=== PATIENT | male | born 1940 | race Caucasian/White ===

== ENCOUNTER 2025-01-13 13:05 | Outpatient (AMB) | payer MEDICARE, MEDICAID, SELFPAY ==
--- NOTE | 2025-01-13 13:07 | A.OFFPC_ITS ---
Vital Signs 3 01/13/25 13:25 Height 5 ft 4.96 in Weight 199 lb BMI 33.2 BP 134/76 Blood Pressure Location Rt brachial Position Sitting Respiration 12 Pulse 88 Pulse Source Pulse Oximeter Temp 99.1 F Temp Source Oral Pulse Oximetry (%) 99 Oxygen Delivery Method Room Air Intake Visit Reasons: Chronic Conditions Intake Note: New patient to establish care and [facility] 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 Patient also needs medical supply. Patient is requesting a chair for shower, diapers, gloves and a portable toilet. Armhole Sewer Required: No Allergies No Known Allergies Allergy (Verified 01/13/25 13:50) Medication List - Last Reviewed 01/13/25 by José Gonzales MA apixaban (Eliquis) 2.5 mg PO BID bumetanide 2 mg PO DAILY metoprolol tartrate 25 mg PO BID sacubitril-valsartan 24-26 mg (Entresto) 1 tab PO BID triamcinolone acetonide 0.1% appl topical BID Tobacco use date assessed: 01/13/25 Fall risk assessment: No Falls in past year Last assessed Fall Risk: 01/13/25 Dental Screening Dental Screen Date: 01/13/25 Did you have a dental visit in the last 12 months?: Yes Did you have a dental problem in the last 6 months where you did not have access to dental care?: No Was dental information given to patient?: Patient has dentist HPI HPI Comments 2 History of Present Illness0 Details 84 y/o M with CHF with seconday hyperald osteronism, Afib with secondary hypercoaguable state, hypothyroid, PVD, HTN, CKD, Anemia, chronic R pleural effusion w/ pleurx cath Specialists: DERM appt tomorrow in [place] CARDS RENAL New patient here to [facility] care w/ his dtr who helps w/ regan barrier. Armhole Sewer offered and declined. Here today for a Transitional Care Management Visit, Discharge summary reviewed. 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 I do not have these records. Medications reconciled & updated. During todays TCM visit, the d/c summary was reviewed, along with the need for or follow-up on pending diagnostic tests and treatments, as necessary interaction with other health floor care technician who will assume or reassume care of the beneficiary?s system-specific problems was done or is being worked on, education was provided to the beneficiary, family, guardian, and/or caregiver, referrals to establish or re-establish and arrange needed community resources we completed, assistance in scheduling required follow-up with community providers and services & finally updated medication list given to patient/caregiver Exam: Awake alert NAD accompanied by dtr Scleras clear bilat Afib LS dim RLL otherwise clear, pleurx cath RLL Lipoma L lower leg Lipoma Scalp Skin lesion R restorationism Right leg bandaged, not removed for visit; + edema BLE Amb walker [facility] Care Access Director E Learning - History of Atrial Fibrillation, Heart Failure, Mitral Regurgitation, and Chronic Right-Sided Pleural Effusion. - Recent admission for heart failure and acute kidney injury. - PleuRx catheter in place for pleural e ffusion, drains fluid every three weeks. - Experiences bilateral leg swelling, no open wounds. - Lives with daughter after care home stay. - Reports discomfort with multiple speci alist visits, prefers minimal intervention. - He keeps saying Im fine and dtr want s some intervention. - tried to review goals of care but neit her were willing to review. - Derm fu tomorrow for suspected cancer skin lesion R restorationism Review of Systems - Cardiovascular: Reports heart failure, mitral regurgitation; denies chest pain. - Respiratory: Reports chronic right-geronimo ed pleural effusion. - Gastrointestinal: Denies current heart burn. - Musculoskeletal: Reports bilateral leg swelling. - Dermatological: Reports redness in low er extremities; denies open wounds. - Urinary: Following acute kidney injury . - General: Denies recent infections. Physical Exam Awake alert NAD accompanied by dtr Scleras clear bilat Afib LS dim RLL otherwise clear, pleurx cath RLL Lipoma L anterior lower leg, proximal to knee Lipoma Scalp right posterior Skin lesion R restorationism covered by bandaid, not removed for visit today Right leg bandaged, not removed for visit; + edema BLE Amb walker Discussion Notes I discussed with the patient the management of his current health issues, including the role of the PleuRx catheter in managing chronic pleural effusion due to heart failure. I explained that periodic drainage helps prevent complications such as increased respiratory distress. We talked about the importance of seeing a overhead irrigator for ongoing heart failure management, despite his hesitance to visit multiple doctors, emphasizing that managing the PleuRx catheter and heart conditions is vital. I mentioned that the catheter should stay in place due to fluid buildup, to which the patient agreed. We discussed the need for updated blood work for medication adjustments. Follow-up with the heart and kidney specialists, and consideration for a vascular consultation for leg evaluation, were proposed, with priority given to cardiac issues. He states he does not want any doctors other than PCP and Renal. He wants to go to the hospital w/ any changes in his health, not willing to contact outpatient care providers, despite education. For this, i will enroll NN for dz education and risk reduction. He may be a candidate for palliative care but i could not get this info toda, despite trying. Assessment and Plan 1. Atrial Fibrillation - Continue Eliquis 2.5 mg BID. - Cont metoprolol 25mg BID - Refer to Cards 2. Heart Failure and Pleural Effusion - Maintain Bumetanide, Metoprolol, Entre sto; Refer to cardiology. - PleuRx catheter RLL, drainage every 3 weeks. Further mgmt as per Cards - I have scanned in the info about this pleurx to the chart -- this is actually a [employer] cath and not a Pleurx or at least it was; dtr states it was changed during [facility], for which i do not have the records 3. Moderate Mitral Regurgitation - Monitor with heart failure management. 4. Acute Kidney Injury/CKD - Nephrology referral; monitor renal fun ction. 5. Bilateral Leg Swelling - Consider vascular consult; monitor caprice ous signs. 6. Hypothyroid was taking levothroxine in the past but not currently, will check TSH Will send refill on all meds once labs are back. Recommed fu in 3 months for SAWV , sooner as needed. Patient Instructions - Continue all prescribed medications as directed. - Drain pleural catheter as needed, appr oximately every three weeks. - Follow up with overhead irrigator and nephro logist for ongoing management. - Undergo blood work to update kidney an d heart evaluations. - Report increased leg swelling or new s ymptoms promptly. - Maintain regular follow-up appointment s with healthcare providers. Consent Patient was informed and verbally consented to the use of an ambient scribe for clinic note documentation during this visit. Total time spent caring for the patient today was 70 minutes. This includes time spent before the visit reviewing the chart, time spent during the visit, and time spent after the visit on documentation, reviewing laboratory results, diagnostic imaging, medications, performing a medically necessary evaluation, counseling on diagnoses, care coordination, ordering appropriate tests, ordering appropriate medications, review of tests performed by other providers, reporting test results with the patient, communication with other healthcare providers. [facility] Medical History (Updated 01/13/25 @ 15:29 by Lori Hill [facility]) Back pain Kidney disease No pertinent family history Spine disorder Surgical History (Updated 01/13/25 @ 13:37 by José Gonzales MA) History of thoracic surgery Social History (Updated 01/13/25 @ 13:34 by José Gonzales MA) Household Members: Family Both parents involved: No Caregiver staying overnight: No Housing: House Are you a primary health care facility administrator to a significant other at home: No Do you presently have visiting nurse or other home services: No 75 years or older and lives alone: No Alcohol intake: never Patient Tobacco Use Status: Never used Tobacco e-Cigarette/Vaping Use: Never Used Second Hand Smoke Exposure: No service: No Current occupational status: retired Cognitive needs: No Hearing needs: No Vision needs: No Questionnaire PHQ-9 Over the last 2 weeks, how often have you been bothered by any of the following problems? 1. Little interest or pleasure in doing things: not at all 2. Feeling down, depressed, or hopeless: not at all 3. Trouble falling or staying asleep, or sleeping too much: not at all 4. Feeling tired or having little energy: nearly every day 5. Poor appetite or overeating: not at all 6. Feeling bad about yourself - or that you are a failure or have let yourself or your family down: not at all 7. Trouble concentrating on things, such as reading the newspaper or watching television: not at all 8. Moving or speaking so slowly that other people could have noticed. Or the opposite - being so fidgety or restless that you have been moving around a lot more than usual: not at all 9. Thoughts that you would be better off or of hurting yourself in some way: not at all Total score: 3 Depression Screening Interpretation: Negative Depression Screening Done: Yes 63678 - PHQ-9 Billing: Yes Source: Developed by Drs. Armani Romero, Margaret Harper, Abiel Goldman and colleagues, with an educational jane from [employer]. Thrive Questionnaire Date Thrive assessed: 01/13/25 I am a: Patient What is your living situation today?: I have a steady place to live Within the past 12 months, did the food you bought not last and you didn't have the money to get more?: Never true Within the past 12 months, did you worry whether your food would run out before you got money to buy more?: Never true Do you have trouble paying for medicines?: No Do you have trouble getting transportation to medical appointments?: No Do you have trouble paying your heating and electricity bill?: No Do you have trouble taking care of your child, family member or friend?: I choose not to answer this question Do you have trouble with day-to-day activities such as bathing, preparing meals, shopping, managing finances, etc.?: Yes Are you currently unemployed and looking for a job?: No Are you interested in more education?: I choose not to answer this question Please select the resources that you would like help with: None Currently or been in a relationship where the following occur: I choose not to answer THRIVE Score: 0 AUDIT C Alcohol Use Questionnaire (AUDIT-C) 1. How often do you have a drink containing alcohol?: Never 3. How often do you have six or more drinks on one occasion?: Never Total Score: 0 SANDI-7 AMB Questionnaire SANDI-7 Date SANDI - 7 assessed: 01/13/25 Feeling nervous, anxious, or on edge: 0 = Not at all Not being able to stop or control worryin = Not at all Worrying too much about different things: 0 = Not at all Trouble relaxin = Not at all Being so restless that it is hard to sit still: 0 = Not at all Becoming easily annoyed or irritable: 0 = Not at all Feeling afraid as if something awful might happen: 0 = Not at all Total SANDI-7 score (0-4 normal; 5-9 mild; 10-14 moderate; 15-21 severe): 0 Source: Developed by Drs. Armani Romero, Margaret Harper, Abiel Goldman and colleagues, with an educational jane from [employer]. SANDI-7 Assessment Billing SANDI-7 Assessment Tool: SANDI-7 Assessment 67718 Physical exam (Primary Care) Vital Signs: Last Vital Signs Temp 99.1 F 01/13/25 13:25 Pulse 88 01/13/25 13:25 Resp 12 01/13/25 13:25 BP 134/76 01/13/25 13:25 Pulse Ox 99 01/13/25 13:25 Oxygen Delivery Method Room Air 01/13/25 13:25 BMI result Body Mass Index 33.2 Tobacco/Smoking Status: Tobacco use Status Tobacco use date assessed 01/13/25 01/13/25 13:12 Patient Tobacco Use Status Never used Tobacco 01/13/25 13:34 e-Cigarette/Vaping Use Never Used 01/13/25 13:34 PHQ-9: PHQ-9 Score PHQ-9: Total score 3 01/13/25 13:29 Depression Screening Interpretation: Negative Thrive Assessment: Date of Thrive Assessment Date Thrive assessed 01/13/25 01/13/25 13:12 Currently or been in a relationship where the following occur: I choose not to answer Results Reviewed Results Reviewed: Coding Level of Care Code New Pt Level 5 (46973) Complex EM visit Add On G2211 Diagnoses Hospital discharge follow-up Z09 Chronic diastolic congestive heart failure I50.32 Heart failure type: diastolic Heart failure chronicity: chronic Encounter to establish care Z76.89 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 Permanent atrial fibrillation I48.21 Atrial fibrillation type: permanent Secondary hypercoagulable state D68.69 Acquired hypothyroidism E03.9 Hypothyroidism type: acquired PVD (peripheral vascular disease) I73.9 Primary hypertension I10 Hypertension type: primary hypertension Stage 3b chronic kidney disease N18.32 Chronic kidney disease stage 3 subtype: stage 3b (GFR 30-44) Chronic pleural effusion J90 Indwelling pleural catheter present Z96.89 Frailty syndrome in geriatric patient R54 Goals of care, counseling/discussion Z71.89 Additional Codes SANDI-7 Assessment Billing - SANDI-7 Assessment Tool: SANDI-7 Assessment 14241 ([id number]) PHQ-9 - 65392 - PHQ-9 Billing: Yes ([id number]) Assessment & Plan Assessment & Plan (1) Hospital discharge follow-up: Code(s): Z09 - Encounter for follow-up examination after completed treatment for conditions other than malignant neoplasm (2) CHF (congestive heart failure): Comment: with Secondary hyperaldosteronism that activates the zqmii-fmfwdwspohh-zznvgmdtdnh system (RAAS), due to Heart failure on entresto Code(s): I50.9 - Heart failure, unspecified Category: Medical Qualifiers: Heart failure type: diastolic Heart failure chronicity: chronic Q ualified Code(s): I50.32 - Chronic diastolic (congestive) heart failure (3) Encounter to establish care: Code(s): Z76.89 - Persons encountering health services in other specified circumstances (4) Secondary hyperaldosteronism: Comment: Secondary hyperaldosteronism that activates the ijxrd-burledcagha-ewrmhzvbxfl system (RAAS), due to Heart failure on entresto Code(s): E26.1 - Secondary hyperaldosteronism Category: Medical (5) Afib: Comment: w/ secondary hypercoagulable state, on eliquis Code(s): I48.91 - Unspecified atrial fibrillation Category: Medical Qualifiers: Atrial fibrillation type: permanent Qualified Code(s): I48.21 - Permanent atrial fibrillation (6) Secondary hypercoagulable state: Comment: d/t afib, on eliquis Code(s): D68.69 - Other thrombophilia Category: Medical (7) Hypothyroid: Code(s): E03.9 - Hypothyroidism, unspecified Category: Medical Qualifiers: Hypothyroidism type: acquired Qualified Code(s): E03.9 - Hypothyroidism, unspecified (8) PVD (peripheral vascular disease): Comment: BLE There is some type of area on R lateral lower leg that i did not see today Declined vascular referral at this time wants to use some amazon otc cream and self treat Code(s): I73.9 - Peripheral vascular disease, unspecified Category: Medical (9) HTN (hypertension): Code(s): I10 - Essential (primary) hypertension Category: Medical Qualifiers: Hypertension type: primary hypertension Qualified Code(s): I10 - Essential (primary) hypertension (10) CKD (chronic kidney disease) stage 3, GFR 30-59 ml/min: Comment: refer to renal Code(s): N18.30 - Chronic kidney disease, stage 3 unspecified Category: Medical Qualifiers: Chronic kidney disease stage 3 subtype: stage 3b (GFR 30-44) Qualified Code(s): N18.32 - Chronic kidney disease, stage 3b (11) Chronic pleural effusion: Comment: RLL pleurx cath in place Code(s): J90 - Pleural effusion, not elsewhere classified Category: Medical (12) Indwelling pleural catheter present: Comment: RLL Code(s): Z96.89 - Presence of other specified functional implants Category: Medical (13) Frailty syndrome in geriatric patient: Code(s): R54 - Age-related physical debility Category: Medical (14) Goals of care, counseling/discussion: Code(s): Z71.89 - Other specified counseling Category: Medical Plan . Orders: Orders 2 Comprehensive Met. Panel Today E03.9 - Hypothyroidism, unspecified, E26.1 - Secondary hyperaldosteronism, I10 - Essential (primary) hypertension, I50.9 - Heart failure, unspecified, N18.30 - Chronic kidney disease, stage 3 unspecified Prostate Specific Antigen Scr Today E03.9 - Hypothyroidism, unspecified, E26.1 - Secondary hyperaldosteronism, I10 - Essential (primary) hypertension, I50.9 - Heart failure, unspecified, N18.30 - Chronic kidney disease, stage 3 unspecified TSH reflex Free T4 Today E03.9 - Hypothyroidism, unspecified, E26.1 - Secondary hyperaldosteronism, I10 - Essential (primary) hypertension, I50.9 - Heart failure, unspecified, N18.30 - Chronic kidney disease, stage 3 unspecified Vitamin B12 and Folate Today E03.9 - Hypothyroidism, unspecified, E26.1 - Secondary hyperaldosteronism, I10 - Essential (primary) hypertension, I50.9 - Heart failure, unspecified, N18.30 - Chronic kidney disease, stage 3 unspecified Vitamin D 25-OH Total Today E03.9 - Hypothyroidism, unspecified, E26.1 - Secondary hyperaldosteronism, I10 - Essential (primary) hypertension, I50.9 - Heart failure, unspecified, N18.30 - Chronic kidney disease, stage 3 unspecified Complete Blood Count no Diff Today E03.9 - Hypothyroidism, unspecified, E26.1 - Secondary hyperaldosteronism, I10 - Essential (primary) hypertension, I50.9 - Heart failure, unspecified, N18.30 - Chronic kidney disease, stage 3 unspecified Lipid Panel Today E03.9 - Hypothyroidism, unspecified, E26.1 - Secondary hyperaldosteronism, I10 - Essential (primary) hypertension, I50.9 - Heart failure, unspecified, N18.30 - Chronic kidney disease, stage 3 unspecified Referrals 2 Cardiology Referral D68.69 - Other thrombophilia, E26.1 - Secondary hyperaldosteronism, I48.91 - Unspecified atrial fibrillation, I50.9 - Heart failure, unspecified, J90 - Pleural effusion, not elsewhere classified, Z96.89 - Presence of other specified functional implants Nurse Navigator Referral I50.9 - Heart failure, unspecified, R54 - Age-related physical debility Nurse Navigator Referral Z71.89 - Other specified counseling Nephrology Referral N18.30 - Chronic kidney disease, stage 3 unspecified
[2025-01-13 13:25] VITALS: BP 134/76; PULSE 88; RESP 12; TEMP 37.3; O2SAT 99; BMI 33.2
--- OUTSIDE RECORDS SUMMARY | 2025-01-13 13:52 | XMS_ITS | Clinical Summary ---
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 Supervisor Name Role Phone UknaunSribuAdeeljosep, Loree Primary Care Provider [phone] Encounters Date Type Department Care Team Description 12/22/2024 Telephone [place] [address] [place] [id number] Loree Tong from Last 3 Months Social History Tobacco Use Types Packs/Day Years Used Date Smoking Tobacco: Never Assessed Sex and Gender Information Value Date Recorded Sex Assigned at Not on file Legal Sex Male 9:34 AM EDT Gender Identity Not on file Sexual Orientation Not on file Plan of Treatment Health Maintenance Due Date Last Done Comments DTaP,Tdap,and Td Vaccines (1 - Tdap) 1959 Pneumococcal Vaccine: 50+ Ye ars (1 of 1 - PCV) 1989 Zoster Vaccines (1 of 2) 1989 RSV Immunization Adult Patie nts (1 - 1-dose 75+ series) 2014 COVID-19 Vaccine ( - 2023-2 5 season) 2024 Depression Screening 2024 Cholesterol Screening (Lipid Panel) 12/22/2024 Falls Risk Assessment 12/22/2024 Hypertension/CHF/CAD Annual BMP Blood Test 12/22/2024 Medicare Annual Wellness Visit 12/22/2024 Social Influencers of Health Screening 12/22/2024 Influenza Vaccine (#1) 2025 HIB Vaccines Aged Out No longer eligi ble based on patient's age to complete this topic HPV Vaccines Aged Out No longer eligi ble based on patient's age to complete this topic Hepatitis A Vaccines Aged Out No long er eligible based on patient's age to complete this topic Hepatitis B Vaccines Aged Out No long er eligible based on patient's age to complete this topic IPV Vaccines Aged Out No longer eligi ble based on patient's age to complete this topic MMR Vaccines Aged Out No longer eligi ble based on patient's age to complete this topic Meningococcal ACWY Vaccine Aged Out N o longer eligible based on patient's age to complete this topic Meningococcal B Vaccine Aged Out No l onger eligible based on patient's age to complete this topic RSV Immunization Patients Un chuy 20 months Aged Out No longer eligible b ased on patient's age to complete this topic Varicella Vaccines Aged Out No longer eligible based on patient's age to complete [place] [id number] MEDICARE Care Teams Reactor Fueling Supervisor Relationship Specialty Start Date End Date Loree Tong [address] [place] [address] [place] [id number] PCP - General Family Medicine 12/22/24
== END 2025-01-13 14:12 | disposition home or self-care (01) ==
LOC: HO.HMCFM 13:06
PROVIDERS: PCP Nurse Practitioner Family; Visit Provider Nurse Practitioner Family
DX: I12.9 Hypertensive chronic kidney disease with stage 1 through stage 4 chronic kidney disease, or unspecified chronic kidney disease (principal); I50.32 Chronic diastolic (congestive) heart failure; I48.21 Permanent atrial fibrillation; N18.32 Chronic kidney disease, stage 3b; Z09 Encounter for follow-up examination after completed treatment for conditions other than malignant neoplasm; Z76.89 Persons encountering health services in other specified circumstances; E26.1 Secondary hyperaldosteronism; D68.69 Other thrombophilia; E03.9 Hypothyroidism, unspecified; I73.9 Peripheral vascular disease, unspecified; J90 Pleural effusion, not elsewhere classified; Z96.89 Presence of other specified functional implants

== ENCOUNTER 2025-01-13 14:06 | Outpatient (REF) | payer MEDICARE, MEDICAID, SELFPAY ==
[2025-01-13 18:28] LABS: Alanine Aminotransferase 30 U/L (0-40); Albumin Level 3.7 g/dL (3.5-5.0); Alkaline Phosphatase 105 U/L (39-117); Anion Gap 13 (12-20); Aspartate Amino Transferase 45 U/L (5-37); Blood Urea Nitrogen 36 mg/dL (9-16); Calcium 8.6 mg/dL (8.4-10.2); Carbon Dioxide 22 mmol/L (22-29); Chloride 110 mmol/L (96-108); Cholesterol 137 mg/dL (<200); Estimated Glomerular Filt Rate 47; HDL Cholesterol 38 mg/dL (>40); Potassium 4.3 mmol/L (3.3-5.1); Sodium 141 mmol/L (135-145); Total Protein 7.7 g/dL (6.5-8.0); Triglycerides 51 mg/dL (<150)
[2025-01-13 18:29] LABS: Hematocrit 36.4 % (42.0-52.0); Hemoglobin 11.4 g/dl (14.0-18.0); Mean Corpuscular HGB Conc 31.3 g/dl (31.0-36.0); Mean Corpuscular Hemoglobin 26.4 pg (27.0-33.0); Mean Corpuscular Volume 84.3 fL (80.0-98.0); NRBC Abs Auto 0.000 X10*3/uL (0.0-0.012); NRBC Pct Auto 0.0 /100WBC (0.0-0.2); Red Blood Count 4.32 X10*6/uL (4.60-5.80); White Blood Count 5.1 X10*3/uL (4.8-10.8)
[2025-01-13 18:43] LABS: Platelet Count 89 X10*3/uL (160-400)
[2025-01-13 18:49] LABS: Folate 10.8 ng/mL (> or = 4.0); Vitamin B12 547 pg/mL (200-900)
== END 2025-01-13 14:07 | disposition home or self-care (01) ==
LOC: HO.WFDLDS 14:06
PROVIDERS: Visit Provider Nurse Practitioner Family
DX: Z09 Encounter for follow-up examination after completed treatment for conditions other than malignant neoplasm (principal); Z76.89 Persons encountering health services in other specified circumstances; I13.0 Hypertensive heart and chronic kidney disease with heart failure and stage 1 through stage 4 chronic kidney disease, or unspecified chronic kidney disease; N18.32 Chronic kidney disease, stage 3b; I50.32 Chronic diastolic (congestive) heart failure; E26.1 Secondary hyperaldosteronism; I48.21 Permanent atrial fibrillation; D68.69 Other thrombophilia; E03.9 Hypothyroidism, unspecified; I73.9 Peripheral vascular disease, unspecified; J90 Pleural effusion, not elsewhere classified; R54 Age-related physical debility; Z96.89 Presence of other specified functional implants; Z71.89 Other specified counseling; Z79.01 Long term (current) use of anticoagulants; Z12.5 Encounter for screening for malignant neoplasm of prostate; Z13.31 Encounter for screening for depression; Z13.39 Encounter for screening examination for other mental health and behavioral disorders
CPT/HCPCS: 36415; 80053; 80061; 82306; 82607; 82746; 84153; 84443; 85027; 96127; 99202

== ENCOUNTER 2025-01-28 08:15 | Outpatient (AMB) | payer MEDICARE, MEDICAID, SELFPAY ==
--- OUTSIDE RECORDS SUMMARY | 2025-01-28 08:20 | XMS_ITS | Clinical Summary ---
Author Organization [facility] Address [address] [place] [address] Phone Care Team Providers Care Police Investigator Name Role Phone [email or web address] Primary Care Provider [phone] Allergies No known active allergies Medications metoprolol tartrate (LOPRESSOR) 25 mg tablet Take 1 tablet (25 mg total) by mouth 2 (two) times a day. 12/02/2024 Active Entresto 24-26 mg per tablet Take 1 tablet by mouth 2 (two) times a day. Active pantoprazole (PROTONIX) 40 mg EC tablet Take 1 tablet (40 mg total) by mouth 1 (one) time each day. 11/05/2024 Active Eliquis 2.5 mg tablet Take 1 tablet (2.5 mg total) by mouth 2 (two) times a day. 12/06/2024 Active amLODIPine (NORVASC) 5 mg tablet Take 1 tablet (5 mg total) by mouth 1 (one) time each day. 11/05/2024 Active bumetanide (BUMEX) 2 mg tablet Take 1 tablet (2 mg total) by mouth 1 (one) time each day. Active Active Problems Problem Noted Date Diagnosed Date Squamous cell carcinoma of skin 01/21/2025 Encounters Date Type Department Care Team Description 01/21/2025 1:00 PM EDT Consult [facility] [place] [address] [place] [address] Chema Lord DO Squamous cell carcinoma of skin (Primary Dx) 12/22/2024 Telephone [facility] [address] [place] [address] UkShelia Loree from Last 3 Months Social History Tobacco Use Types Packs/Day Years Used Date Smoking Tobacco: Never Smokeless Tobacco: Never Tobacco Cessation:Counseling Given: Not Answered Alcohol Use Standard Drinks/Week Comments Never 0 (1 standard drink = 0.6 oz pur e alcohol) Sex and Gender Information Value Date Recorded Sex Assigned at Not on file Legal Sex Male 9:34 AM EDT Gender Identity Not on file Sexual Orientation Not on file Obstetrics History Last Filed Vital Signs Vital Sign Reading Time Taken Comments Blood Pressure 180/109 01/21/2025 12:48 PM EDT Pulse 91 01/21/2025 12:48 PM EDT Temperature - - Respiratory Rate - - Oxygen Saturation - - Inhaled Oxygen Concentration - - Weight 91.4 kg (201 lb 9.6 oz) 01/21/2025 12:48 PM EDT Height 162.6 cm (5' 4 ) 01/21/2025 12:48 PM EDT Body Mass Index 34.6 01/21/2025 12:48 PM EDT Plan of Treatment Scheduled Procedures Name Priority Associated Diagnoses Date/Ti me EXCISION LESION FACE SCALP Squamous cell carcinoma of skin GRAFT SKIN Squamous cell carcinoma of skin GRAFT SKIN FULL THICKNESS Squamous cell carcinoma of skin Health Maintenance Due Date Last Done Comments DTaP,Tdap,and Td Vaccines (1 - Tdap) 1959 Pneumococcal Vaccine: 50+ Ye ars (1 of 1 - PCV) 1989 Zoster Vaccines (1 of 2) 1989 RSV Immunization Adult Patie nts (1 - 1-dose 75+ series) 2014 COVID-19 Vaccine (2023-2 5 season) 2024 Depression Screening 2024 Cholesterol [...] on patient's age to complete this topic Procedures Procedure Name Priority Date/Time Associated Diagnosis Comments TISSUE EXAM Routine 01/21/2025 1:56 PM EDT Squamous cell carcinoma of skin from Last 3 Months Results * Tissue exam (01/21/2025 1:56 PM EDT) Final Diagnosis Skin, face-punch biopsy: -BASAL CELL CARCINOMA, NODULAR TYPE 01/22/2025 10:38 AM [facility] Clinical Information Squamous cell carcinoma of skin (C44.92) 01/22/2025 10:38 AM [facility] Gross Description A. Face, punch biopsy: Labeled face . Received in formalin is a friable, white, irregular, hair-bearing portion of tissue with questionable epithelium measuring approximately 0.15 cm in greatest diameter, excised to a depth of 0.2 cm. The probable base is inked blue and questionable epithelial surface red for ease of embedding. The specimen is submitted in toto in one cassette, one piece, multiple levels on one slide. TS 01/22/2025 10:38 AM [facility] Disclaimer Unless otherwise specified, all tissue is 10% NB formalin fixed and paraffin embedded. 01/22/2025 10:38 AM [facility] Tissue Face structure / Unknown Non-blood Collection / Unknown 01/21/2025 1:56 PM EDT 01/21/2025 1:56 PM EDT us Chema Lord DO LAB PATHOLOGY ORDERABLES Fin al Result [facility] [address] [place] [address], [place] [phone] from Last 3 Months Insurance MEDICARE MEDICAID - [place] Care Teams Police Investigator Relationship Specialty Start Date End Date Loree Tong [address] [place] [address] PCP - General Family Medicine 12/22/24
[2025-01-28 08:31] VITALS: BP 158/78; PULSE 85; BMI 32.9
--- NOTE | 2025-01-28 08:31 | MHC.OFFVIS ---
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 Discussed with patient as well as daughter using [place] knife glazer. [facility] documentation also reviewed. Per notes, many comorbidities listed including congestive heart failure, atrial fibrillation, right-sided pleural effusion on PleurX catheter, renal insufficiency among others. It seems that he did have a previous admission just within the earlier few weeks but then there was some medication confusion and hence he got readmitted. There is a question if the leg swelling was from amlodipine. Med changes were made including switching losartan to Entresto and eventually he was discharged home for follow-up care. Patient is now here. He states he feels absolutely great and has got no symptoms whatsoever. He states that he has a PleurX catheter placed in [facility] and it does not appear that he is actually draining. Apparently, he was told that the PleurX catheter can be removed but he does not want anything done with it. Currently, he denies any symptoms or in fact any cardiac concerns. He is even questioning why he is here. COUNT INCLUDES THE [facility] Medical History (Updated 01/28/25 @ 09:25 by Marck Atwood MD) No pertinent family history Kidney disease Spine disorder Back pain Surgical History (Updated 01/13/25 @ 13:37 by José Gonzales MA) History of thoracic surgery Family History (Updated 01/28/25 @ 08:38 by Lakia Barrow) Mother No problems noted. Father No problems noted. Social History (Updated 07/29/25 @ 13:34 by José Gonzales MA) Household Members: Family Both parents involved: No Caregiver staying overnight: No Housing: House Are you a primary care center manager to a significant other at home: No Do you presently have visiting nurse or other home services: No 75 years or older and lives alone: No Alcohol intake: never Patient Tobacco Use Status: Never used Tobacco e-Cigarette/Vaping Use: Never Used Second Hand Smoke Exposure: No service: No Current occupational status: retired Cognitive needs: No Hearing needs: No Vision needs: No Review of Systems Const Denies weakness ENT Denies dizziness Card Denies chest pain, Denies chest pain with activity, Denies syncope, Denies rapid heart rate, Denies pedal edema, Denies edema, Denies leg edema, Denies lightheadedness, Denies palpitations, Denies dyspnea, Reports dyspnea on exertion and Denies orthopnea Resp Denies cough, Denies dyspnea and Reports dyspnea on exertion GI Denies hematochezia and Denies change in stool character Musc Denies abnormal gait, Denies muscle cramps, Denies muscle weakness, Denies numbness, Denies radiating pain into limb and Denies tingling Neuro Denies abnormal gait, Denies dizziness, Denies syncope, Denies numbness, Denies tingling and Denies weakness Endo Denies palpitations Physical Exam Vital Signs: Last Vital Signs Pulse 85 01/28/25 08:31 BP 158/78 H 01/28/25 08:31 BMI result Body Mass Index 32.9 Const General: comfortable and no acute distress Orientation/consciousness: patient oriented x3 HEENT Other: Unremarkable Head: Yes normal to inspection Neck Neck: Yes normal visual inspection Chest Chest palpation & inspection: normal inspection of the chest Resp Auscultation: clear to auscultation bilaterally Cardio Palpation: normal PMI Heart sounds: S1 normal heart sound present, S2 normal heart sound present, no gallops, no murmurs and no rubs GI Palpation (GI): Soft to palpation Back/Spine/Pelvis Other: unremarkable Skin General skin exam: no rashes or lesions noted Neuro General: patient oriented x3 Extrem Other: Dressing noted General: Yes normal to inspection Psych Mental Status: mental status grossly normal Office Procedures EKG Details: EKG with atrial fibrillation at 85/Min; nonspecific ST-T [place]; [place] [id number], Complete Assessment & Plan Assessment & Plan (1) Chronic heart failure with preserved ejection fraction: Code(s): I50.32 - Chronic diastolic (congestive) heart failure Category: Medical (2) Non-rheumatic tricuspid valve insufficiency: Code(s): I36.1 - Nonrheumatic tricuspid (valve) insufficiency Category: Medical (3) Persistent atrial fibrillation: Code(s): I48.19 - Other persistent atrial fibrillation Category: Medical (4) Pericardial effusion: Code(s): I31.39 - Other pericardial effusion (noninflammatory) Category: Medical Plan Echocardiogram from [facility]-LVEF 60%. Left atrium severely dilated. Calcific aortic valve, [id number] stenosis and iteu-hd-exdnieif regurgitation. Moderate mitral regurgitation. Severe tricuspid regurgitation. Moderate pulmonary hypertension. Dilated IVC with reduced inspiratory collapse. Moderate pericardial effusion. Findings discussed with patient and daughter. Essentially, patient repeated the fact that he feels great and hence he does not want anything done for him. We discussed about repeat echocardiogram but patient is refusing anything. We also discussed about a pulmonary consultation for manage the PleurX catheter but he again he does not want that dealt with. Hence we decided to leave things as they are and he can remain on the same medications and follow up with his own primary care physician. They will contact us with any concerns. Coding Level of Care Code New Pt Level 4 (17268) Diagnoses Chronic heart failure with preserved ejection fraction I50.32 Non-rheumatic tricuspid valve insufficiency I36.1 Persistent atrial fibrillation I48.19 Pericardial effusion I31.39 CPT Codes EKG - CPT: 62555-[id number], Complete ([id number])
== END 2025-01-28 09:11 | disposition home or self-care (01) ==
LOC: HO.HCS 08:16
PROVIDERS: PCP Nurse Practitioner Family; Visit Provider Internal Medicine
DX: I50.32 Chronic diastolic (congestive) heart failure (principal); I36.1 Nonrheumatic tricuspid (valve) insufficiency; I48.19 Other persistent atrial fibrillation; I31.39 Other pericardial effusion (noninflammatory)
CPT/HCPCS: 93010; 99204

== ENCOUNTER → 2025-01-28 08:15 | Outpatient (BNVA) | payer MEDICARE, MEDICAID, SELFPAY | PROVIDERS: PCP Nurse Practitioner Family; Visit Provider Internal Medicine | DX: I50.32 Chronic diastolic (congestive) heart failure (principal); I36.1 Nonrheumatic tricuspid (valve) insufficiency; I48.19 Other persistent atrial fibrillation; I31.39 Other pericardial effusion (noninflammatory); Z79.01 Long term (current) use of anticoagulants | CPT/HCPCS: 93005; 99202 ==

== ENCOUNTER 2025-04-13 09:50 | Outpatient (AMB) | payer MEDICARE, MEDICAID, SELFPAY ==
--- NOTE | 2025-04-13 09:54 | A.OFFPC_ITS ---
Vital Signs 3 04/13/25 10:06 Height 5 ft 4 in Weight 188 lb BMI 32.3 BP 132/72 Blood Pressure Location Rt brachial Position Sitting Respiration 13 Pulse 76 Pulse Source Pulse Oximeter Temp 97.5 F Temp Source Oral Pulse Oximetry (%) 97 Oxygen Delivery Method Room Air Intake Visit Reasons: swollen legs and open wound Intake Note: [facility] dischage follow up It Support Technician Required: No Allergies No Known Allergies Allergy (Verified 04/13/25 10:02) Medication List - Last Reconciled 04/13/25 by Lori Hill, CHRISTMAS TREE GRADER- apixaban (Eliquis) 2.5 mg PO BID atorvastatin (Lipitor) 40 mg PO BEDTIME bumetanide 2 mg PO DAILY dapagliflozin propanediol (Farxiga) 10 mg PO DAILY [Incontinence briefs Incontinence briefs with side tabs, large, use 2-3 daily as needed for incontinence] metoprolol succinate ER 50 mg PO DAILY [Nitrile Gloves As directed daily as needed] pantoprazole 40 mg PO DAILY [Raised toilet seat with arms/rails Raised toilet seat with arms/rails to go on toilet for daily use as needed] [Rollator walker with seat Patient to use daily as needed to assist with ambulation] sacubitril-valsartan 24-26 mg (Entresto) 1 tab PO BID [Shower chair Patient to use chair for showering and bathing daily as needed] [Suction grab bar To hold/use for balance getting into and out of tub/shower] triamcinolone acetonide 0.1% appl topical BID Tobacco use date assessed: 04/13/25 Fall risk assessment: No Falls in past year Last assessed Fall Risk: 04/13/25 Dental Screening Dental Screen Date: 04/13/25 Did you have a dental visit in the last 12 months?: Yes Did you have a dental problem in the last 6 months where you did not have access to dental care?: No Was dental information given to patient?: Patient has dentist HPI HPI Comments 2 History of Present Illness0 Details 84 y/o M with CHF with seconday hyperald osteronism, Afib with secondary hypercoaguable state, hypothyroid, PVD, HTN, CKD, Anemia, chronic R pleural effusion w/ pleurx cath Specialists: [facility] in [place] [facility] Here to est care w/ his grandtr who helps w/ regan barrier. It Support Technician offered and declined. Here today for a Transitional Care Management Visit, Discharge summary reviewed. Admission Date: 04/03/25 Discharge Date: 04/07/25 Hospital: [facility] Date of interactive contact with Nurse Navigator: as documented in chart Pending diagnostic tests/treatments: Labs to eval anemia pending Pending consults: Cards and Renal DME: Ander PT/OT/AIRCRAFT MAINTENANCE DIRECTOR: [facility] vna completed; Has [facility] elder care and [facility] for help in the home Home Health Aide/P 3 ARMAMENT/ORDNANCE IMA TECHNICIAN: see above Referrals: Needs cards referrals, want to go to [facility]. Requesting referral to [facility] in [place] Medications reconciled & updated. During todays TCM visit, the d/c summary was reviewed, along with the need for or follow-up on pending diagnostic tests and treatments, as necessary interaction with other health palliative care nurse who will assume or reassume care of the beneficiary?s system-specific problems was done or is being worked on, education was provided to the beneficiary, family, guardian, and/or caregiver, referrals to establish or re-establish and arrange needed community resources we completed, assistance in scheduling required follow-up with community providers and services & finally updated medication list given to patient/caregiver. History of Present Illness The patient is an 84-year-old male presenting for a transitional care management visit following a recent hospitalization. Congestive heart failure with edema: - The patient was hospitalized at [facility] from April 03 to for edema related to congestive heart failure (CHF). - His legs are now much less swollen fol lowing the hospitalization and medication adjustments. - Discharge medications included a new p rescription for dapagliflozin & entresto. - The patient has a history of being non -compliant with cardiology appointments. - Was seen by [facility] Cards; wishes to be ff 'd by [facility] going [facility]. Venous stasis ulcer RLE: - The patient was also hospitalized for a venous stasis ulcer on his right leg. - The wound is reportedly healing and ap pears better now. - Would like to see [facility] in [place]. Thrombocytopenia: - Thrombocytopenia was one of the diagno ses during his recent hospitalization. - Lab work up is pending Mild Anemia: - The patient was found to have mild ane cindi during his hospitalization, with a hemoglobin of 12 and hematocrit of 38. - Pantoprazole was started as prophylaxi s; he is not taking currently and does not wish to. - Anemia may be related to his chronic k idney disease. Back Pain: - The patient reports having back pain, for which he previously took Tylenol. - The pain is noted to be slightly madison r. - Chronic; worsened during hospital stay . - Denies red flags assoc w/ back pain. Chronic Kidney Disease: - The patient was previously offered a r eferral to a kidney specialist, which he declined. Overall he cont to wish for conservative treatment Review of Systems - Constitutional: Reports catching a col d during his recent hospitalization. - Respiratory: Denies shortness of breat h. - Musculoskeletal: Reports improving shaye k pain. Exam: Awake alert NAD accompanied by granddtr Scleras clear bilat Afib LS dim RLL otherwise clear, pleurx cath RLL Lipoma L lower leg Lipoma Scalp Skin lesion R islam Right leg bandaged, not removed for visit; + edema BLE Right lower ext: Amb walker [facility] Access Automatic Drilling Machine Operator Results See below Medical Decision Making The patient is an 84-year-old male seen for a transitional care management visit after a recent hospitalization for an exacerbation of CHF, a venous stasis ulcer, and thrombocytopenia. His peripheral edema has improved significantly with recent medication changes. Given his history of CHF and past nonadherence with specialist appointments, a new referral to cardiology is warranted for ongoing management. The venous stasis ulcer on his right leg is healing, , making a referral to a wound care clinic essential for proper assessment and treatment. The mild anemia (Hgb 12) discovered during hospitalization may be multifactorial, possibly linked to his chronic kidney disease. Further workup is pending. His back pain will be managed conservatively with a topical analgesic, lidocaine. Coordination of care will continue with the [facility] VNA, and a follow-up appointment is scheduled in two weeks to review the status of referrals and his overall condition. Plan 1. Congestive Heart Failure - Continue current medications as prescr ibed at discharge, including Eliquis, atorvastatin, bumetanide, dapagliflozin, metoprolol, Entresto - A referral will be placed for the trevor ent to be seen by cardiology at [facility]. - Refills on all meds have been sent to pharmacy, 90 day supply. 2. Venous Stasis Ulcer, RLE - A referral will be placed for the trevor ent to be seen at the [facility]. - [facility] will continue to provide home care services. 3. Mild Anemia - Await results from pending specialty l abs for anemia workup. 4. Back Pain - A topical cream, lidocaine, will be p rescribed for as-needed use, up to twice a day, to help with back pain. - A refill will be provided if the cream is effective. 5. Follow-Up - The patient is advised to keep his fol low-up appointment in approximately two weeks to monitor progress and ensure consults are being processsed. Patient Instructions - Continue taking all your medications a s they were prescribed when you left the hospital. - We are setting up appointments for you with a cash applications specialist (cardiology) and a drug regulatory affairs specialist. It is important that you go to these appointments. - Allow the visiting nurses from [facility] to continue coming to your home to check on you and help with your care. - We will give you a cream for your back pain. You can have your family rub it on your back as needed, up to twice a day. - Please come back to the clinic for you r next appointment in about two weeks so we can check on your progress. Consent Patient was informed and verbally consented to the use of an ambient scribe for clinic note documentation during this visit. Total time spent caring for the patient today was 60 minutes. This includes time spent before the visit reviewing the chart, time spent during the visit, and time spent after the visit on documentation, reviewing laboratory results, diagnostic imaging, medications, performing a medically necessary evaluation, counseling on diagnoses, care coordination, ordering appropriate tests, ordering appropriate medications, review of tests performed by other providers, reporting test results with the patient, communication with other healthcare providers. [facility] Medical History (Updated 04/13/25 @ 11:50 by [facility]) Back pain CHF (congestive heart failure) Chronic heart failure with preserved ejection fraction Kidney disease No pertinent family history Persistent atrial fibrillation Spine disorder Surgical History (Updated 01/13/25 @ 13:37 by José Gonzales MA) History of thoracic surgery Family History (Updated 01/28/25 @ 08:38 by Lakia Barrow) Mother No problems noted. Father No problems noted. Social History (Updated 01/13/25 @ 13:34 by José Gonzales MA) Household Members: Family Both parents involved: No Caregiver staying overnight: No Housing: House Are you a primary adult caregiver to a significant other at home: No Do you presently have visiting nurse or other home services: No 75 years or older and lives alone: No Alcohol intake: never Patient Tobacco Use Status: Never used Tobacco e-Cigarette/Vaping Use: Never Used Second Hand Smoke Exposure: No service: No Current occupational status: retired Cognitive needs: No Hearing needs: No Vision needs: No Questionnaire Thrive Questionnaire Date Thrive assessed: 01/13/25 I am a: Patient What is your living situation today?: I have a steady place to live Within the past 12 months, did the food you bought not last and you didn't have the money to get more?: Never true Within the past 12 months, did you worry whether your food would run out before you got money to buy more?: Never true Do you have trouble paying for medicines?: No Do you have trouble getting transportation to medical appointments?: No Do you have trouble paying your heating and electricity bill?: No Do you have trouble taking care of your child, family member or friend?: I choose not to answer this question Do you have trouble with day-to-day activities such as bathing, preparing meals, shopping, managing finances, etc.?: Yes Are you currently unemployed and looking for a job?: No Are you interested in more education?: I choose not to answer this question Please select the resources that you would like help with: None Currently or been in a relationship where the following occur: I choose not to answer THRIVE Score: 0 SANDI-7 AMB Questionnaire SANDI-7 Date SANDI - 7 assessed: 01/13/25 Source: Developed by Drs. Armani Romero, Margaret Harper, Abiel Goldman and colleagues, with an educational jane from [employer]. Physical exam (Primary Care) Vital Signs: Last Vital Signs Temp 97.5 F 04/13/25 10:06 Pulse 76 04/13/25 10:06 Resp 13 04/13/25 10:06 BP 132/72 04/13/25 10:06 Pulse Ox 97 04/13/25 10:06 Oxygen Delivery Method Room Air 04/13/25 10:06 BMI result Body Mass Index 32.3 Tobacco/Smoking Status: Tobacco use Status Tobacco use date assessed 04/13/25 04/13/25 09:57 Patient Tobacco Use Status Never used Tobacco 04/13/25 09:57 e-Cigarette/Vaping Use Never Used 04/13/25 09:57 Thrive Assessment: Date of Thrive Assessment Date Thrive assessed 01/13/25 04/13/25 09:57 Currently or been in a relationship where the following occur: I choose not to answer Results Reviewed Results Reviewed: 04/06/25 Coding Level of Care Code TCM High MDM <= 7 Days Complex EM visit Add On G2211 Diagnoses Hospital discharge follow-up Z09 Venous stasis ulcer of right lower extremity I83.019; L97.919 Permanent atrial fibrillation I48.21 Atrial fibrillation type: permanent Secondary hypercoagulable state D68.69 Primary hypertension I10 Hypertension type: primary hypertension Chronic pleural effusion J90 Indwelling pleural catheter present Z96.89 Non-rheumatic tricuspid valve insufficiency I36.1 Influenza vaccination declined Z28.21 PVD (peripheral vascular disease) I73.9 Chronic heart failure with preserved ejection fraction I50.32 Thrombocytopenia D69.6 Chronic diastolic congestive heart failure I50.32 Heart failure type: diastolic Heart failure chronicity: chronic Mild anemia D64.9 Stage 3b chronic kidney disease N18.32 Chronic kidney disease stage 3 subtype: stage 3b (GFR 30-44) 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 Assessment & Plan Assessment & Plan (1) Hospital discharge follow-up: Code(s): Z09 - Encounter for follow-up examination after completed treatment for conditions other than malignant neoplasm (2) Venous stasis ulcer of right lower extremity: Code(s): I83.019 - Varicose veins of right lower extremity with ulcer of unspecified site; L97.919 - Non-pressure chronic ulcer of unspecified part of right lower leg with unspecified severity Category: Medical (3) Afib: Comment: w/ secondary hypercoagulable state, on eliquis Code(s): I48.91 - Unspecified atrial fibrillation Category: Medical Qualifiers: Atrial fibrillation type: permanent Qualified Code(s): I48.21 - Permanent atrial fibrillation (4) Secondary hypercoagulable state: Comment: d/t afib, on eliquis Code(s): D68.69 - Other thrombophilia Category: Medical (5) HTN (hypertension): Code(s): I10 - Essential (primary) hypertension Category: Medical Qualifiers: Hypertension type: primary hypertension Qualified Code(s): I10 - Essential (primary) hypertension (6) Chronic pleural effusion: Comment: RLL pleurx cath in place Code(s): J90 - Pleural effusion, not elsewhere classified Category: Medical (7) Indwelling pleural catheter present: Comment: RLL Code(s): Z96.89 - Presence of other specified functional implants Category: Medical (8) Non-rheumatic tricuspid valve insufficiency: Code(s): I36.1 - Nonrheumatic tricuspid (valve) insufficiency Category: Medical (9) Influenza vaccination declined: Onset Date: ~04/13/25 Code(s): Z28.21 - Immunization not carried out because of patient refusal Category: Medical (10) PVD (peripheral vascular disease): Comment: BLE Declined vascular referral wants to use some amazon otc cream and self treat Code(s): I73.9 - Peripheral vascular disease, unspecified Category: Medical (11) Chronic heart failure with preserved ejection fraction: Comment: echo 04/06/25 Code(s): I50.32 - Chronic diastolic (congestive) heart failure Category: Medical (12) Thrombocytopenia: Code(s): D69.6 - Thrombocytopenia, unspecified Category: Medical (13) CHF (congestive heart failure): Comment: with Secondary hyperaldosteronism that activates the kghsp-fxbikjexyqc-oayykkekgns system (RAAS), due to Heart failure on entresto Code(s): I50.9 - Heart failure, unspecified Category: Medical Qualifiers: Heart failure type: diastolic Heart failure chronicity: chronic Q ualified Code(s): I50.32 - Chronic diastolic (congestive) heart failure (14) Mild anemia: Code(s): D64.9 - Anemia, unspecified Category: Medical (15) CKD (chronic kidney disease) stage 3, GFR 30-59 ml/min: Code(s): N18.30 - Chronic kidney disease, stage 3 unspecified Category: Medical Qualifiers: Chronic kidney disease stage 3 subtype: stage 3b (GFR 30-44) Qualified Code(s): N18.32 - Chronic kidney disease, stage 3b (16) Secondary hyperaldosteronism: Comment: Secondary hyperaldosteronism that activates the bkvsb-wbyihmewrmy-igkortyypsa system (RAAS), due to Heart failure on entresto Code(s): E26.1 - Secondary hyperaldosteronism Category: Medical Plan . Orders: Referrals 2 Wound Care Referral I83.019 - Varicose veins of right lower extremity with ulcer of unspecified site, L97.919 - Non-pressure chronic ulcer of unspecified part of right lower leg with unspecified severity Cardiology Referral D68.69 - Other thrombophilia, I10 - Essential (primary) hypertension, I36.1 - Nonrheumatic tricuspid (valve) insufficiency, I48.21 - Permanent atrial fibrillation, I50.32 - Chronic diastolic (congestive) heart failure, J90 - Pleural effusion, not elsewhere classified, Z96.89 - Presence of other specified functional implants Medications: New 2 dapagliflozin propanediol (Farxiga) 10 mg PO DAILY 90 tabs 2RF atorvastatin (Lipitor) 40 mg PO BEDTIME 90 tabs 2RF bumetanide 2 mg PO DAILY 90 tabs 2RF metoprolol succinate ER 50 mg PO DAILY 90 tabs 2RF sacubitril-valsartan 24-26 mg (Entresto) 1 tab PO BID 180 tabs 2RF 90 days lidocaine 4% 1 appl topical BID PRN 58.5 grams 2RF pain
[2025-04-13 10:06] VITALS: BP 132/72; PULSE 76; RESP 13; TEMP 36.4; O2SAT 97; BMI 32.3
== END 2025-04-13 10:41 | disposition home or self-care (01) ==
LOC: HO.HMCFM 09:51
PROVIDERS: PCP Nurse Practitioner Family; Visit Provider Nurse Practitioner Family
DX: I13.0 Hypertensive heart and chronic kidney disease with heart failure and stage 1 through stage 4 chronic kidney disease, or unspecified chronic kidney disease (principal); I50.32 Chronic diastolic (congestive) heart failure; N18.32 Chronic kidney disease, stage 3b; I48.21 Permanent atrial fibrillation; I83.019 Varicose veins of right lower extremity with ulcer of unspecified site; L97.919 Non-pressure chronic ulcer of unspecified part of right lower leg with unspecified severity; Z09 Encounter for follow-up examination after completed treatment for conditions other than malignant neoplasm; D68.69 Other thrombophilia; J90 Pleural effusion, not elsewhere classified; Z96.89 Presence of other specified functional implants; I36.1 Nonrheumatic tricuspid (valve) insufficiency

== ENCOUNTER → 2025-04-13 09:50 | Outpatient (BNVA) | payer MEDICARE, MEDICAID, SELFPAY | PROVIDERS: PCP Nurse Practitioner Family; Visit Provider Nurse Practitioner Family | DX: Z09 Encounter for follow-up examination after completed treatment for conditions other than malignant neoplasm (principal); I13.0 Hypertensive heart and chronic kidney disease with heart failure and stage 1 through stage 4 chronic kidney disease, or unspecified chronic kidney disease; N18.32 Chronic kidney disease, stage 3b; I50.32 Chronic diastolic (congestive) heart failure; I83.019 Varicose veins of right lower extremity with ulcer of unspecified site; L97.919 Non-pressure chronic ulcer of unspecified part of right lower leg with unspecified severity; I48.21 Permanent atrial fibrillation; D68.69 Other thrombophilia; J90 Pleural effusion, not elsewhere classified; Z96.89 Presence of other specified functional implants; I36.1 Nonrheumatic tricuspid (valve) insufficiency; I73.9 Peripheral vascular disease, unspecified; D69.6 Thrombocytopenia, unspecified; D64.9 Anemia, unspecified; E26.1 Secondary hyperaldosteronism | CPT/HCPCS: 99212 ==

== ENCOUNTER → 2025-04-24 23:59 | Outpatient (BNV) | payer MEDICARE, MEDICAID, SELFPAY | PROVIDERS: PCP Nurse Practitioner Family; Visit Provider Nurse Practitioner Family | DX: I13.0 Hypertensive heart and chronic kidney disease with heart failure and stage 1 through stage 4 chronic kidney disease, or unspecified chronic kidney disease (principal); I50.33 Acute on chronic diastolic (congestive) heart failure; N18.9 Chronic kidney disease, unspecified | CPT/HCPCS: G0180 ==

== ENCOUNTER 2025-06-02 12:26 | Outpatient (AMB) | payer MEDICARE, MEDICAID, SELFPAY ==
--- OUTSIDE RECORDS SUMMARY | 2025-05-05 08:00 | XMS_ITS ---
Author Organization [facility] Address [address] [place] [address] Care Team Providers Care It Applications Analyst Name Role Phone Lori Webber Primary Care Provider Unavailab Lakeshia Xavier Unavailable [phone] Encounters Encounter Location Date Provider Diagnosis [facility] [address] [facility] [address] [place] [address] 05/05/2025 Lakeshia Vidal Plan Of Treatment No Information Progress Notes * Ford ADRIANOB:06/1940 (84 yo M)Acc No.[id number]:05/05/2025 Patient: Halima SPANGLERksandr Provider: Owen Vidal NP :1940 A ge:84 Y S ex:Male Date:05/05/2025 Address:[address] [facility] [place], [id number] Pcp:Lori Webber Subjective: * Chief Complaints: * * Medical History: Objective: * Vitals: Assessment: Plan: * Treatment: * Billing Information: * Visit Code: * Procedure Codes: * Electronic signature of Duy Vidal NP on 06/02/2025 at 04:15 PM EST Sign off status: Pending * Provider: Owen Vidal NP Date: 07/05/2024 Generated for Kristie jin/Jacquelyn/Joni on: 08/03/2024 04:15 PM EST
--- OUTSIDE RECORDS SUMMARY | 2025-05-21 08:00 | XMS_ITS ---
Author Organization [facility] Address [address] [place] [address] Care Team Providers Care Grease Man Name Role Phone Lori Webber Primary Care Provider Unavailab Lakeshia Xavier Unavailable [phone] Encounters Encounter Location Date Provider Diagnosis [facility] [address] [facility] [address] [place] [address] 05/21/2025 Lakeshia Vidal Plan Of Treatment No Information Progress Notes * Ford ADRIANOB:06/1940 (84 yo M)Acc No.[id number]:05/21/2025 Patient: Halima SPANGLERksandr Provider: Owen Vidal NP :1940 A ge:84 Y S ex:Male Date:05/21/2025 [address] [facility] [place] [id number] Pcp:Lori Webber Subjective: * Chief Complaints: * * Medical History: Objective: * Vitals: Assessment: Plan: * Treatment: * Billing Information: * Visit Code: * Procedure Codes: * Electronic signature of Duy Vidal NP on 06/02/2025 at 04:15 PM EST Sign off status: Pending * Provider: Owen Vidal NP Date: 07/22/2024 Generated for Kristie jin/Jacquelyn/Joni on: 08/03/2024 04:15 PM EST
--- NOTE | 2025-06-02 12:28 | A.OFFPC_ITS ---
Vital Signs 06/02/25 12:34 Height 5 ft 4 in Weight 186 lb 6 oz BMI 32.0 BP 118/67 Blood Pressure Location Rt brachial Position Sitting Respiration 12 Pulse 77 Pulse Source Pulse Oximeter Temp 97.5 F Temp Source Oral Pulse Oximetry (%) 98 Oxygen Delivery Method Room Air Intake Visit Reasons: hdfu [facility] Intake Note: [facility] discharge from [facility]. Patient needs refill. Architectural Inspector Required: No Allergies No Known Allergies Allergy (Verified 06/02/25 13:06) Medication List - Last Reconciled 06/02/25 by Lori Hill, ORDER EXPEDITER- apixaban (Eliquis) 2.5 mg PO BID atorvastatin (Lipitor) 40 mg PO BEDTIME bumetanide 2 mg PO DAILY dapagliflozin propanediol (Farxiga) 10 mg PO DAILY [Incontinence briefs Incontinence briefs with side tabs, large, use 2-3 daily as needed for incontinence] lidocaine 4% 1 appl topical BID PRN metoprolol succinate ER 50 mg PO DAILY [Nitrile Gloves As directed daily as needed] pantoprazole 40 mg PO DAILY [Raised toilet seat with arms/rails Raised toilet seat with arms/rails to go on toilet for daily use as needed] [Rollator walker with seat Patient to use daily as needed to assist with ambulation] sacubitril-valsartan 24-26 mg (Entresto) 1 tab PO BID sacubitril-valsartan 24-26 mg (Entresto) 1 tab PO BID 90 days [Shower chair Patient to use chair for showering and bathing daily as needed] [Suction grab bar To hold/use for balance getting into and out of tub/shower] triamcinolone acetonide 0.1% appl topical BID Tobacco use date assessed: 06/02/25 Fall risk assessment: No Falls in past year Last assessed Fall Risk: 06/02/25 Dental Screening Dental Screen Date: 06/02/25 Did you have a dental visit in the last 12 months?: Yes Did you have a dental problem in the last 6 months where you did not have access to dental care?: No Was dental information given to patient?: Patient has dentist HPI HPI Comments History of Present Illness Details 84 y/o F with CHF with secondary hyperal dosteronism, Afib with secondary hypercoaguable state, hypothyroid, PVD, HTN, CKD, Anemia, chronic R pleural effusion w/ pleurx cath (removed 05/2025), pericardial effusion, bilat renal cysts, multiple splenic cysts, skin cancer (?? squamous cell) Here today for a Transitional Care Management Visit Discharge summary reviewed. Admission Date: 05/20/25 Discharge Date: 05/22/25 Hospital: [facility] Date of interactive contact with Nurse Navigator: as documented in chart Pending diagnostic tests/treatments: NONE Pending consults: NONE DME: NO NEW PT/OT/TILE GRINDER: Y but family declined VNA Home Health Aide/STAFFING CLERK: Community Resources: Asst Living: Home Health: Hospice: Support group: Other: Referrals: NONE Medications reconciled & updated. No changes PCP heads up Check glucose and renal function in 3 days >> imaging showed pericardial effusion, small to moderate; mediastinal lymphadenopathy ? treated lymphoma VS sarcoid; bilat renal cysts; multiple splenic cysts During todays TCM visit, the d/c summary was reviewed, along with the need for or follow-up on pending diagnostic tests and treatments, as necessary interaction with other health animal care supervisor who will assume or reassume care of the beneficiary?s system-specific problems was done or is being worked o n, education was provided to the beneficiary, family, guardian, and/or caregiver, referrals to establish or re-establish and arrange needed community resources we completed, assistance in scheduling required follow-up with community providers and services & finally updated medication list given to patient/caregiver History of Present Illness The patient is an 84 year old male presenting with a transitional care management visit following a recent hospitalization for removal of a right pleuryx catheter. Dtr present to help w/ translation per preference and granddaughter Marlin called during visit, too, adding to complexity. Transitional care management: - The patient was hospitalized from to May 22 at [facility] for the removal of a right paroxysmal catheter that had been in place for over two years. - Following removal, the site showed sig ns of bleeding and possible infection, prompting an emergency call, but is now reportedly healed well. - The family declined visiting nurse ser vices for dressing changes as they felt it was unnecessary. Back and leg pain: - The patient reports experiencing back and leg pain, which causes him to walk slowly. - He has been taking Tylenol daily for t he pain, wonders how much to take. Mediastinal lymphadenopathy: - A pre-procedure chest imaging revealed swollen lymph nodes in the mediastinum. - The differential diagnosis from the re port includes lymphoma or sarcoidosis. - The family is unaware of any history o f lymphoma or sarcoidosis, as they do not have his medical records from a prior [place] [facility] in [place]. Past Medical History: - He has a history of congestive heart f ailure with secondary aldosteronism and atrial fibrillation with a secondary hypercoagulable state. - In the past, the catheter was drained of two liters of fluid every three days for four months. - He has a history of skin cancer, possi braydon squamous cell, which was surgically addressed. - The patient is a [place]-speaking male cared for by his family who report poor follow-through with outpatient care and a preference for hospital visits. - The patient has multiple lipomas, incl uding large ones on his arm and back, which he may consider having removed in the summer. Past Medical History - Congestive heart failure with secondar y aldosteronism - Atrial fibrillation with secondary hyp ercoagulable state - Right paroxysmal catheter placement fo r over 2 years, now removed - History of significant pleural fluid d rainage (2 liters every 3 days for 4 months) - Skin cancer, status post-surgical exci lyn - Multiple lipomas - Chronic pleural effusion Review of Systems - General: Reports feeling unwell and ti red, which he attributes to a cold. - Respiratory: Denies cough or breathing problems, but family reports a chronic cough with saliva. - HEENT: Denies nasal congestion. - Musculoskeletal: Reports back and leg pain, causing him to walk slowly. Physical Exam Awake alert NAD accompanied by dtr Scleras clear bilat TM intact and clear Nares w scant clear drainage, sinuses nontender to palp Pharynx clear Afib LS dim throughout, no cough, pleurx cath RLL site scabbed, bandaid applied to cover during visit, no signs of infection Lipoma L lower leg Lipoma Scalp Skin lesion R jain scar from removal, scar L neck from skin graft Right leg ulcer is healed, chronic vascular discoloration, + edema BLE Pleasant and cooperative Results - Imaging: A pre-procedure CT scan of e chest revealed mediastinal lymphadenopathy. - Labs: Swabs for influenza and COVID-19 performed during his recent hospitalization were negative. Medical Decision Making The patient is an 84-year-old male seen for a transitional care management visit following hospitalization for removal of a long-term right pleuryx catheter. The primary issue from the hospitalization is an incidental finding on a chest CT of mediastinal lymphadenopathy, with lymphoma and sarcoidosis listed as differential diagnoses. Given the potential seriousness of lymphoma and the lack of historical medical records, a referral to pulmonology for further evaluation is warranted. This will allow for a specialist to review the existing imaging and determine the next appropriate steps, while respecting the patient's apparent desire to avoid extensive medical interventions. The patient's chronic pain in his back and legs is reportedly not well-managed with his current Tylenol use. I will prescribe scheduled Tylenol Arthritis 650 mg three times per day to provide more consistent analgesia. The patient declined repeat lab work today, stating he had significant blood draws during his recent hospitalization. His catheter removal site is healing well without complication. The cough he experiences is likely multifactorial, related to his chronic pleural effusion and heart failure, and should be monitored. Goals of care discussion had again. He does not want invasive intervention; does not want to go to specialists;he states he feels fine and is happy w/ his current health status. Dtr and granddtr do not agree with this; they think he is just scared to know whats wrong and wish to pursue workup and followup. Advised he is competent to make his own decisions and his wishes should be honored. be that as it may, they wish to pursue Pulm consult. Which may prove no benefit, especially if he will not have repeat imaging, labs or testing done. I advised on palliative care in the past but this was declined. Plan 1. Mediastinal Lymphadenopathy/Chronic c ough/CHF - A referral will be placed for the trevor ent to be evaluated by a manager disaster recovery to investigate the mediastinal lymphadenopathy found on his recent chest CT scan. - The manager disaster recovery will review the exis ting scan, and the appointment will be scheduled at this office for convenience. - Overall does not want to see [facility] brigette donahue, prefers [facility] but given this office can provide pulm consult, [facility] [place]. - Heme was not chosen as Pulm concerns h ave been more prominent and CBC has been stable. - he can fu with cards for his cHF , con t all meds. Chronic cough is multifactorial to CHF, chronic pleural effusion. His exam is now c/w any acute pathology. 2. Back And Leg Pain - A prescription for Tylenol Arthritis 6 50 mg to be taken three times per day will be sent to the patient's [facility] pharmacy in [place]. 3. Follow-Up - The patient declined repeat lab work a t this visit. - The family will receive a call to gwen rich the pulmonology appointment. - GOals of care discussion had again; isabella guillaume and family are at odds. Patient is competent to make his own decisions; I think this should be honored. Be that as it may, family wishes to pursue further workup. - I have tried to arrange visits in the past but he seeks care at the hospital instead of coming here, despite edu; so he can fu as needed. Consent Patient was informed and verbally consented to the use of an ambient scribe for clinic note documentation during this visit. Total time spent caring for the patient today was 69 minutes. This includes time spent before the visit reviewing the chart, time spent during the visit, and time spent after the visit on documentation, reviewing laboratory results, diagnostic imaging, medications, performing a medically necessary evaluation, counseling on diagnoses, care coordination, ordering appropriate tests, ordering appropriate medications, review of tests performed by other providers, reporting test results with the patient, communication with other healthcare providers. [facility] Medical History (Updated 06/02/25 @ 13:19 by Lori Hill, [facility]) Back pain CHF (congestive heart failure) Chronic heart failure with preserved ejection fraction Indwelling pleural catheter present Kidney disease No pertinent family history Persistent atrial fibrillation Spine disorder Surgical History (Updated 01/13/25 @ 13:37 by José Gonzales MA) History of thoracic surgery Family History (Updated 01/28/25 @ 08:38 by Lakia Barrow) Mother No problems noted. Father No problems noted. Social History (Updated 01/13/25 @ 13:34 by José Gonzales MA) Household Members: Family Both parents involved: No Caregiver staying overnight: No Housing: House Are you a primary rn progressive care to a significant other at home: No Do you presently have visiting nurse or other home services: No 75 years or older and lives alone: No Alcohol intake: never Patient Tobacco Use Status: Never used Tobacco e-Cigarette/Vaping Use: Never Used Second Hand Smoke Exposure: No service: No Current occupational status: retired Cognitive needs: No Hearing needs: No Vision needs: No Questionnaire Thrive Questionnaire Date Thrive assessed: 01/13/25 I am a: Patient What is your living situation today?: I have a steady place to live Within the past 12 months, did the food you bought not last and you didn't have the money to get more?: Never true Within the past 12 months, did you worry whether your food would run out before you got money to buy more?: Never true Do you have trouble paying for medicines?: No Do you have trouble getting transportation to medical appointments?: No Do you have trouble paying your heating and electricity bill?: No Do you have trouble taking care of your child, family member or friend?: I choose not to answer this question Do you have trouble with day-to-day activities such as bathing, preparing meals, shopping, managing finances, etc.?: Yes Are you currently unemployed and looking for a job?: No Are you interested in more education?: I choose not to answer this question Please select the resources that you would like help with: None Currently or been in a relationship where the following occur: I choose not to answer THRIVE Score: 0 SANDI-7 AMB Questionnaire SANDI-7 Date SANDI - 7 assessed: 01/13/25 Source: Developed by Drs. Armani Romero, Margaret Harper, Abiel Goldman and colleagues, with an educational jane from [employer]. Physical exam (Primary Care) Vital Signs: Last Vital Signs Temp 97.5 F 06/02/25 12:34 Pulse 77 06/02/25 12:34 Resp 12 06/02/25 12:34 BP 118/67 06/02/25 12:34 Pulse Ox 98 06/02/25 12:34 Oxygen Delivery Method Room Air 06/02/25 12:34 BMI result Body Mass Index 32.0 Tobacco/Smoking Status: Tobacco use Status Tobacco use date assessed 06/02/25 06/02/25 12:30 Patient Tobacco Use Status Never used Tobacco 06/02/25 12:30 e-Cigarette/Vaping Use Never Used 06/02/25 12:30 Thrive Assessment: Date of Thrive Assessment Date Thrive assessed 01/13/25 06/02/25 12:30 Currently or been in a relationship where the following occur: I choose not to answer Coding Level of Care Code Add On Problem Visit Only TCM High MDM <= 14 days Diagnoses Hospital discharge follow-up Z51.89 Chronic pleural effusion J90 Mediastinal lymphadenopathy R59.0 Goals of care, counseling/discussion Z71.89 Chronic diastolic congestive heart failure I50.32 Heart failure type: diastolic Heart failure chronicity: chronic Skin cancer C44.90 Bilateral renal cysts N28.1 Splenic cyst D73.4 CPT Codes [facility] OUTPT/OFFICE VIS - G2212 Assessment & Plan Assessment & Plan (1) Hospital discharge follow-up: Code(s): Z51.89 - Encounter for other specified aftercare (2) Chronic pleural effusion: Comment: RLL pleurx cath in place REMOVED 05/2025 [facility] Code(s): J90 - Pleural effusion, not elsewhere classified Category: Medical (3) Mediastinal lymphadenopathy: Comment: NOTED ON CT 05/2025 [facility], IMPRESSION MAY BE DUE TO TREATED LYMPHOMA OR SARCOID Code(s): R59.0 - Localized enlarged lymph nodes Category: Medical (4) Goals of care, counseling/discussion: Code(s): Z71.89 - Other specified counseling Category: Medical (5) CHF (congestive heart failure): Comment: with Secondary hyperaldosteronism that activates the qgqqb-jenwhiirnow-xmmlgvoshxq system (RAAS), due to Heart failure on entresto Code(s): I50.9 - Heart failure, unspecified Category: Medical Qualifiers: Heart failure type: diastolic Heart failure chronicity: chronic Qualified Code(s): I50.32 - Chronic diastolic (congestive) heart failure (6) Skin cancer: Comment: unclear what kind, ? 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 Orders: Referrals Pulmonology Referral J90 - Pleural effusion, not elsewhere classified, R59.0 - Localized enlarged lymph nodes Medications: New acetaminophen ER (Arthritis Pain Relief (acetaminophen) ER) 650 mg PO Q8H 90 tabs 2RF 30 days
[2025-06-02 12:34] VITALS: BP 118/67; PULSE 77; RESP 12; TEMP 36.4; O2SAT 98; BMI 32.0
--- OUTSIDE RECORDS SUMMARY | 2025-06-02 16:15 | XMS_ITS | Patient Health Record ---
Author Organization [facility] Address [address] [facility] [address] [place] [address] Care Team Providers Care Cna Ltc Name Role Phone Lori Webber Primary Care Provider Unavailab jose Robbynancyseymour Lakeshia Unavailable [phone] Allergies No Known Allergies Reason For Referral No Information Medications Medication SIG (Take, Route, Frequency, Duration) Notes Start Date End Date Status Entresto 24-26 MG 1 tablet Orally Twic e a day Active Bumetanide 2 MG 1 tablet Orally Once a day Active Atorvastatin Calcium 40 MG 1 tablet Oral ly Once a day Active Eliquis 2.5 MG as directed Orally Active Metoprolol Succinate ER 50 MG 1 tablet Orally Once a day Active Dapagliflozin Propanediol 10 MG 1 tablet Orally Once a day Active Pantoprazole Sodium 40 MG 1 tablet 1/2 t o 1 hour before morning meal Orally Once a day Active Problems Problem Type SNOMED Code ICD Code Onset Dates Problem Status W/U Status Risk Notes Problem 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 of unspecified site (I83.019) Active confirmed Problem Ankle ulcer (605518176) Non-pressure chronic ulcer of right ankle with unspecified severity (L97.319) Active confirmed Problem Chronic ulcer of foot (068270530) Non-pressure chronic ulcer of other part of left foot with fat layer exposed (L97.522) Active confirmed Problem Presence of othe r specified functional implants (Z96.89) Active confirmed Problem Peripheral venous insufficiency (14152299) Venous insufficiency (I87.2) Active confirmed Problem Thrombocytopenia (632485060) Thrombocytopenia (D69.6) Active confirmed Problem Chronic kidney disease (953592869) Chronic kidney disease (N18.9) Active confirmed Problem Atrial fibrillation (22573037) Atrial fibrillation (I48.91) Active confirmed Problem Anemia (373948691) Anemia (D64.9) Active confir med Problem Congestive heart failure (13364050) CHF (congestive heart failure) (I50.9) Active confirmed Vital Signs Heart Rate 85 /min 04/28/2025 Temperature 97.2 degrees Fahrenheit 04/28/2025 Respiratory Rate 18 /min 04/28/2025 Height-cm 162.56 cm 04/28/2025 Oximetry 97 % 04/28/2025 Blood pressure diastolic 78 mm Hg 04/28/2025 Weight-kg 85.28 kg 04/28/2025 Height 64 in 04/28/2025 Blood pressure systolic 118 mm Hg 04/28/2025 Weight 188 lbs 04/28/2025 BMI 32.27 kg/m2 04/28/2025 Encounters Encounter Location Date Provider Diagnosis [facility] [address] [address] 04/28/2025 Lakeshia Vidal CHF (congestive hear t failure) I50.9 ; Venous insufficiency I87.2 ; Non-pressure chronic ulcer of other part of left foot with fat layer exposed L97.522 ; Edema of both lower extremities R60.0 ; Chronic kidney disease N18.9 and Atrial fibrillation I48.91 [facility] [address] [address] 04/21/2025 Lakeshia Vidal Assessments Encounter Date Diagnosis (ICD Code) Assessment Notes Treatment Notes Treatment Clinical Notes Section Notes 04/28/2025 Venous insufficiency (ICD-10 - I87.2) On exam, vital signs stable, afebrile, daughter in room. Examination of the right lateral leg revealed multiple small clustered wounds with slough in the wound bed and surrounding hemosiderin staining. The wound demonstrated hypergranuated tissue without erythema, purulence or signs of infection. The patient exhibited bilateral lower extremity edema and dry, scaly skin. palpable DP and PT pulses to the right. I discussed the indication for debridement however daughter declines debridement as she feels this will worsen the wound despite education of importance of debridement. Wound was cleaned with saline, Silvasorb was applied to the wound bed, zinc to periwound secured with DSD. Tubigrip was applied to the right leg. Daniel presents today for initial visit for treatment of right lateral leg wound in the setting of edema, venous insufficiency and CHF. A detailed discussion was held with patient and daughter regarding the importance of wound debridement, however she declined debridement expressing the concern that it may worsen the wound. His wound appears to be improving with current treatment of Silvasorb based on the pictures the daughter provided. We will continue with Silvasorb to the wound, apply zinc to periwound. I had a lengthy discussion regarding importance of compression and leg elevation to aid venous return and reduce edema. He was agreeable to trial Tubigrip which I recommended that he wears daily on in AM and off in PM. Encouraged to elevate legs above the heart if possible. I will order ABIs to evaluate his arterial flow. Reviewed signs of infection and when to report. He is agreeable to plan. He will return in 1 week for a follow-up visit. I spent 55 minutes of direct and indirect care of this patient reviewing records, gathering H&P, evaluation, formulating plan, education and documentation. I Lakeshia MCCANN-Margie, examined, evaluated and treated the patient. Dr. Hedy Dowell was available for any question or concerns that I may have had. 04/28/2025 CHF (congestive heart failure) (ICD-10 - I50.9) 04/28/2025 Non-pressure chronic ulcer of other part of left foot with fat layer exposed (ICD-10 - L97.522) 04/28/2025 Edema of both lower extremities (ICD-10 - R60.0) 04/28/2025 Chronic kidney disease (ICD-10 - N18.9) 04/28/2025 Atrial fibrillation (ICD-10 - I48.91) Plan Of Treatment No Information Insurance Providers Payer Name Payer Address Payer Phone Subscriber Number Group Number Insured Name Patient Relationship to Insured Coverage Start Date Coverage End Date Medicare [address] [place], [place] [id number] [phone] [id number] Rashel Adrian Self - patient is the insured 4 [employer] (Medicai d) [address] [place], [place] [id number] [phone] [id number] Rashel Adrian Self - patient is the insured Medical (General) History Medical History History ICD Code Non-pressure chronic ulcer of right ankl e with unspecified severity L97.319 Thrombocytopenia D69.6 Anemia D64.9 Chronic kidney disease N18.9 Back pain M54.9 CHF (congestive heart failure) I50.9 Atrial fibrillation I48.91 Pleural effusion, not elsewhere classifi ed J90 Varicose veins of right lower extremity with ulcer of unspecified site I83.019 Presence of other specified functional i mplants Z96.89 Surgical History Surgery Date(Month/Year) Thoracic surgery
--- OUTSIDE RECORDS SUMMARY | 2025-06-02 16:15 | XMS_ITS | Clinical Summary ---
Author Organization [facility] ([place], [place]) [facility] Address [address] [place] [address] Phone Care Team Providers Care Enrollment Consultant Name Role Phone Loree Tong Primary Care Provider [phone] Allergies No known active allergies Medications metoprolol [...] Encounters Date Type Department Care Team Description 04/15/2025 Telephone Thoracic Surgery - [place] [address] [place] [address] Idalmis Muller RN 04/02/2025 1:00 PM EDT Office Visit Plastic & Reconstructive Surgery [facility] [address] [place] [phone] Huong Estrada PA Aftercare following surgery of the skin or subcutaneous tissue (Primary Dx) 03/30/2025 Telephone [facility] Cardiology [facility] [address] [place] [address] Uko-Abajosep, Loree 03/16/2025 1:00 PM EDT Office Visit Plastic & Reconstructive Surgery - [place] [address] [place] [phone] Huong Estrada PA Aftercare following surgery of the skin or subcutaneous tissue (Primary Dx) 03/09/2025 1:00 PM EDT Office Visit Plastic & Reconstructive Surgery [address] [place] [phone] Delroy Cruz PA History of chest tube placement (Primary Dx); Aftercare following surgery of the skin or subcutaneous tissue from Last 3 Months Social History Tobacco [...] on file Sexual Orientation Not on file Last Filed Vital Signs Vital Sign Reading Time Taken Comments Blood Pressure 160/103 02/23/2025 4:00 PM EDT Pulse 78 02/23/2025 4:00 PM EDT Temperature 36.4 C (97.6 F) 02/23/2025 1:56 PM EDT Respiratory Rate 20 02/23/2025 1:56 PM EDT Oxygen Saturation 97% 02/23/2025 1:56 PM EDT Inhaled Oxygen Concentration - - Weight 91.4 kg (201 lb 9.6 oz) 01/21/2025 12:48 PM EDT Height 162.6 cm (5' 4 ) 01/21/2025 12:48 PM EDT Body Mass Index 34.6 01/21/2025 12:48 PM EDT Plan of Treatment Health Maintenance Due Date Last Done Comments DTaP,Tdap,and Td Vaccines (1 - Tdap) 1959 Pneumococcal Vaccine: 50+ Ye ars (1 of 1 - PCV) 1989 Zoster Vaccines (1 of 2) 1989 RSV Immunization Adult Patie nts (1 - 1-dose 75+ series) 2014 Depression Screening 2024 Cholesterol Screening (Lipid Panel) 12/22/2024 Falls Risk Assessment 12/22/2024 Medicare Annual Wellness Visit 12/22/2024 Social Influencers of Health Screening 12/22/2024 COVID-19 Vaccine (1 - 2024-2 6 season) 2025 Influenza Vaccine (#1) 2025 HIB Vaccines Aged [...] patient's age to complete this topic Insurance MEDICARE MEDICAID - [place] Care Teams Enrollment Consultant Relationship Specialty Start Date End Date Loree Tong [address] [place] [address] PCP - General Family Medicine 12/22/24
== END 2025-06-02 13:08 | disposition home or self-care (01) ==
LOC: HO.HMCFM 12:27
PROVIDERS: PCP Nurse Practitioner Family; Visit Provider Nurse Practitioner Family
DX: Z51.89 Encounter for other specified aftercare (principal); I50.32 Chronic diastolic (congestive) heart failure; M54.9 Dorsalgia, unspecified; M79.606 Pain in leg, unspecified; R59.0 Localized enlarged lymph nodes; N28.1 Cyst of kidney, acquired; D73.4 Cyst of spleen; Z71.89 Other specified counseling; Z85.828 Personal history of other malignant neoplasm of skin; Z87.09 Personal history of other diseases of the respiratory system

== ENCOUNTER → 2025-06-02 12:26 | Outpatient (BNVA) | payer MEDICARE, MEDICAID, SELFPAY | PROVIDERS: PCP Nurse Practitioner Family; Visit Provider Nurse Practitioner Family | DX: Z09 Encounter for follow-up examination after completed treatment for conditions other than malignant neoplasm (principal); J90 Pleural effusion, not elsewhere classified; C44.90 Unspecified malignant neoplasm of skin, unspecified; R59.0 Localized enlarged lymph nodes; I50.32 Chronic diastolic (congestive) heart failure; D73.4 Cyst of spleen; N28.1 Cyst of kidney, acquired | CPT/HCPCS: 99495 ==